=== PATIENT | male | born 1975 | race Two or more races ===

== ENCOUNTER 2020-03-07 11:19 | Day surgery (SDC) | payer OTHER ==
[2020-03-04 13:48] VITALS: BMI 25.9
[2020-03-07] MEDS ORDERED: ONDANSETRON 4 MG/2 ML VIAL IVPUSH PRN ×2 (12:10→12:34)
[2020-03-07] MEDS ORDERED: oxyCODONE HCL 5 MG TABLET PO PRN ×2 (12:10→12:34)
[2020-03-07] MEDS ORDERED: LACTATED RINGERS SOLUTION 1,000 ML IV SCH ×2 (12:15→12:45)
[2020-03-07] MEDS ORDERED: MIDAZOLAM HCL 2 MG/2 ML SINGLE DOSE VIAL ONE (12:26)
[2020-03-07] MEDS ORDERED: BUPIVACAINE HCL/PF 0.25% (2.5MG/ML) 10 ML VIAL ONE (12:40)
[2020-03-07] MEDS ORDERED: BUPIVACAINE HCL/EPINEPHRINE/PF 30 ML VIAL IJ ONE (12:40)
[2020-03-07] MEDS ORDERED: PROPOFOL 20 ML ONE (12:54)
[2020-03-07] MEDS ORDERED: BUPIVACAINE HCL/PF 0.25% (2.5MG/ML) 10 ML VIAL IJ ONE (13:58)
[2020-03-07 16:14] VITALS: PULSE 68
[2020-03-07 16:57] VITALS: BP 131/65; TEMP 98
== END 2020-03-07 18:00 | disposition home or self-care (01) ==
LOC: FASU 11:19
PROVIDERS: ATTEND Orthopaedic Surgery
PROC: 0LM30ZZ Reattachment of Right Upper Arm Tendon, Open Approach (ICD-10-PCS; principal; 2020-03-07 13:23)
DX: S46.211A Strain of muscle, fascia and tendon of other parts of biceps, right arm, initial encounter (principal); X58.XXXA Exposure to other specified factors, initial encounter; Y93.9 Activity, unspecified; Y92.9 Unspecified place or not applicable
CPT/HCPCS: 94760